=== PATIENT | male | born 1995 | race Caucasian/White ===

== ENCOUNTER 2024-02-25 15:22 | Emergency (ER) | payer BC, SELFPAY ==
[2024-02-25 15:36] VITALS: BP 147/67
[2024-02-25 17:09] VITALS: BP 148/73
--- NOTE | 2024-02-25 17:23 | ED.GENMED ---
History of Present Illness
General
Chief Complaint: Headache
Source: patient
Time Seen by Provider: 02/25/24 16:52
Travel History
Have you had any contact with someone who has COVID-19?: No
Do you have any symptoms of coronavirus? Fever > 100 degrees, chills, cough, shortness of breath, sore throat, loss of taste or smell, muscle aches, or headache?: No
History of Present Illness
History of Present Illness:
29-year-old male with no significant past medical history presenting the emergency department for evaluation of a headache that has been ongoing for the last week to 10 days noting that throughout this time the headache has been present in various
different areas, worse when bending over but also noting when he takes a deep breath and feeling pain up into the back of his head. Patient states that his symptoms are intermittently relieved with ibuprofen and Tylenol but that symptoms returned
shortly after medication wears off. he denies any history of headaches in the past. No family history. Social history was significant for quitting smoking about 4 years ago and social drinking noting occasional beers on weekends. Patient denies
any other symptoms fevers, vomiting, visual changes or any other concerns. Of note, patient was recently in [place] and had been working out extensively doing a lot of [employer] and wonders if this may be related. Does note taking supplements for
weight lifting.
Past History
Past History
ED Past Medical History: None
ED Past Surgical History: None
Social History
Tobacco: Non-smoker
Alcohol: Occasional
Drug: None
Personal: Single
Living: with roommate
Employment: Not employed
Review of Systems
Review of Systems
All Other Systems: ROS reviewed and negative except as documented in HPI and ROS
Phy Exam
Physical Exam
Physical Exam:
GENERAL: Alert , in no apparent distress
EYE: conjunctiva clear
NECK: Supple, no significant adenopathy. No meningismus, no focal tenderness
ENT: o/p clr, mmm.
CARDIAC: Regular rate and rhythm
LUNGS: Clear breath sounds bilaterally, no acute respiratory distress, no wheezes/rales/rhonchi
NEUROLOGICAL: Alert and oriented, moves all extremities, ambulates with steady gait, no ataxia, no dysmetria
SKIN: Warm and dry, skin intact.
MUSCULOSKELETAL: well perfused.
PSYCH: Normal and appropriate interaction.
Scores
Heart Failure Risk
Heart Failure Risk Score: Not Applicable
Heart Score for Chest Pain Patients
STEMI patient?: Not applicable
Withdrawal Assessment of Alcohol
Withdrawal Assessment Completed?: Not applicable
Course
Orders/Labs/Results
Orders:
Orders
02/25/24 17:01
CT Head W/o Iv Contrast Urgent
Comment:
Reason For Exam: waxing and waning headache x 10 days
02/25/24 17:12
CPK [Creatine Phosphokinase] Urgent
Complete Blood Count/With Diff Urgent
Comprehensive Metabolic Panel Urgent
Abnormal Lab Results
02/25/24
17:12
RBC 4.63 L 10^6/uL
(4.70-6.10)
BUN 27 H mg/dl
(9-20)
02/25/24 17:12
02/25/24 17:12
Vital Signs
Initial and Last Documented VS:
Initial Vital Signs
Pulse Resp BP Pulse Ox
66 15 147/67 100
02/25/24 15:36 02/25/24 15:36 02/25/24 15:36 02/25/24 15:36
Last Documented Vital Signs
Pulse Resp BP Pulse Ox
63 16 148/73 98
02/25/24 17:09 02/25/24 17:09 02/25/24 17:09 02/25/24 17:09
MDM/Problems Addressed
Differential Diagnosis Includes:
Tension headache, migraine headache, symptoms not suggestive of cluster headache, less concern for intracranial bleeding/mass
MDM/Problems Addressed:
29-year-old male presenting the emergency ferment for evaluation of headache that has been waxing waning over about 10 days, will get resolved with Tylenol and ibuprofen but after medication wears off symptoms will return. No focal findings on exam
here. Given the amount of time that is passed since the start of symptoms will obtain CT of the head to rule out secondary cause for headache. I am also checking labs to look at electrolytes, hemoglobin, CPK level given patient's extensive workout
history. Patient is declining anything for symptoms.
*Radiology
Radiology exam reviewed: radiology read reviewed
*Pulse Oximetry
Patient hypoxic: no
*Critical Care Note
Total Time (30-74mins, 75-104mins- exclusive of procedures): Not Applicable
Patient Management
Escalation/DeEscalation of care consider admission/obs:
Patient CT scan without any acute findings. Labs also unremarkable. Patient continues to decline any medication. Feels comfortable being discharged home and will follow-up with primary care provider.
ED Attending Note
-
Portions of this chart may have been created with voice recognition software.� Occasional wrong word or��sound alike� substitutions may have occurred due to the inherent limitations of voice recognition software.
Discharge Plan
Departure
Patient Disposition: Home (Routine Discharge)
Date of Disposition: 02/25/24
Time of Disposition: 19:01
Patient with high blood pressure during this ER visit?: Yes
Discharge Problem:
Headache
Instructions: Headache, Adult (DC)
Referrals:
NONE,* [Family Provider] -
Interventions
Interventions:
*Risk Screen - Suicide Last Done: 02/25/24 15:36
*General Assessment Last Done: 02/25/24 15:36
*Neglect/Abuse Screening Last Done: 02/25/24 15:36
ED- Fall Risk Assessment Last Done: 02/25/24 16:32
*ED COVID-19 Vaccine History Last Done: 02/25/24 15:36
*Nursing Disposition Last Done: 02/25/24 19:04
ED- Neurological Assessment Last Done: 02/25/24 16:27
Discharge Date and Time
Discharge Date/Time: 02/25/24 19:05
Print Language: SLOVENIAN
[2024-02-25 17:25] LABS: % Eosinophils 1.6 % (0-6); % Immature Granulocytes 0.3 % (0-0.5); % Lymphocytes 28.1 % (20.5-51.1); % Monocytes 6.6 % (1.7-9.3); % Neutrophils 62.4 % (42.2-75.2); Absolute Basophils 0.1 10^3/uL (0-0.2); Absolute Eosinophils 0.1 10^3/uL (0-0.7); Absolute Lymphocytes 2.1 10^3/uL (1.2-3.4); Absolute Monocytes 0.5 10^3/uL (0.1-0.6); Absolute Neutrophils 4.6 10^3/uL (1.4-6.5); Hematocrit 40.2 % (39.0-52.0); Hemoglobin 14.2 g/dL (13.0-18.0); Mean Corp Hgb Conc. 35.3 g/dL (33.0-37.0); Mean Corpuscular Hgb 30.7 pg (27.0-31.0); Mean Corpuscular Volume 86.8 fL (80.0-94.0); Mean Platelet Volume 9.1 fL (7.4-10.4); Nucleated Red Blood Cells % 0 % (-); Platelet Count 225 10^3/uL (130-400); Red Blood Cell Count 4.63 10^6/uL (4.70-6.10); Red Cell Dist. Width 12.6 % (11.5-14.5); White Blood Cell Count 7.3 10^3/uL (4.8-10.8)
[2024-02-25 17:41] LABS: ALT (SGPT) 34 U/L (0-50); AST (SGOT) 34 U/L (17-59); Albumin 4.8 g/dl (3.5-5.0); Alkaline Phosphatase 71 U/L (38-126); Blood Urea Nitrogen 27 mg/dl (9-20); Calcium 9.8 mg/dl (8.4-10.2); Carbon Dioxide 28 mmol/L (22-30); Chloride 102 mmol/L (98-107); Creatine Phosphokinase 99 U/L (55-170); Glucose 97 mg/dl (70-99); Sodium 137 mmol/L (135-145); Total Bilirubin 0.5 mg/dl (0.2-1.3); Total Protein 7.4 g/dl (6.3-8.2); eGFR > 60.00
== END 2024-02-25 19:05 | disposition home or self-care (01) ==
LOC: EMR 15:22
PROVIDERS: Physician Assistant Medical; EMERGENCY PHYSICIAN Emergency Medicine
DX: R51.9 Headache, unspecified (principal); R03.0 Elevated blood-pressure reading, without diagnosis of hypertension
CPT/HCPCS: 99284; 70450; 80053; 82550; 85025